=== PATIENT | female | born 1955 | race Caucasian/White ===

== ENCOUNTER → 2019-09-05 | Outpatient (CLI) | payer MEDICARE ==
[2019-09-05 15:06] LABS: HCT 41.7 % (34.0-46.0); HGB 14.7 gm/dL (11.4-16.0); MCH 33.6 pg (25.0-35.0); MCHC 35.3 g/dL (31.0-37.0); MCV 95.4 fL (80.0-100.0); Mean Platelet Volume 5.7; Platelet Count 229 k/uL (150-450); RBC 4.37 m/uL (3.80-5.40); RDW 13.5 % (11.5-15.5); WBC 6.8 k/uL (3.8-10.6)
[2019-09-05 15:13] LABS: Partial Thromboplastin Time 24.4 sec (22.0-30.0); Prothrombin Time 10.8 sec (9.0-12.0)
[2019-09-05 15:18] LABS: ALT 28 U/L (9-52); AST 31 U/L (14-36); African American GFR (CKD) >90 (>60 ml/min/1.73 sqM); Alkaline Phosphatase 108 U/L (38-126); Anion Gap 6 mmol/L; Blood Urea Nitrogen 17 mg/dL (7-17); Calcium 9.5 mg/dL (8.4-10.2); Carbon Dioxide 29 mmol/L (22-30); Chloride 107 mmol/L (98-107); Glucose 101 mg/dL (74-99); Potassium 4.5 mmol/L (3.5-5.1); Sodium 142 mmol/L (137-145); Total Bilirubin 0.5 mg/dL (0.2-1.3); Total Protein 7.3 g/dL (6.3-8.2)
[2019-09-05 15:19] LABS: Appearance,Urine Clear (Clear); Bacteria,Urine Rare /hpf; Bilirubin,Urine Negative (Negative); Blood,Urine Negative (Negative); Color,Urine Yellow; Glucose,Urine (UA) Negative (Negative); Ketones,Urine Negative (Negative); Leukocyte Esterase,Urine Trace (Negative); Mucus,Urine Rare /hpf; Nitrite,Urine Negative (Negative); PH, Urine 6.5 (5.0-8.0); Protein,Urine Negative (Negative); Specific Gravity,Urine 1.015 (1.001-1.035); Squamous Epithelial Cell,Urine <1 /hpf (0-4); Urobilinogen,Urine <2.0 mg/dL (<2.0); WBC,Urine 1 /hpf (0-5)
== END ==
LOC: LABPAT 12:39
PROVIDERS: ATTEND Orthopaedic Surgery
DX: Z01.812 Encounter for preprocedural laboratory examination (principal); M17.11 Unilateral primary osteoarthritis, right knee; Z79.01 Long term (current) use of anticoagulants
CPT/HCPCS: 80053; 81001; 85027; 85610; 85730; 87070

== ENCOUNTER 2019-09-25 08:19 | Day surgery (SDC) | payer MEDICARE ==
[2019-09-21 15:30] VITALS: BMI 31.8
[~2019-09-25 08:19] MED LIST: ACETAMINOPHEN TAB 500 MG TAB PO ONE; DEXAMETHASONE SOD PHOSPHATE 10 MG/ML 1 ML VIAL IV ONE; GABAPENTIN 300 MG CAP PO ONE; HYDROmorphone 0.5 MG/0.5 ML SYRINGE IVP PRN; LIDOCAINE 1% 20 ML VIAL (10MG/ML) FOR IV START INTRADERMA PRN; MELOXICAM 7.5 MG TAB PO ONE; MIDAZOLAM 2 MG/2 ML VIAL IV PRN; ONDANSETRON 4 MG/2 ML VIAL IVP ONE; ROPIVACAINE 246.25 MG, EPINEPHrine 0.5 MG, KETOROLAC 30 MG, cloNIDine HCL/PF 80 MCG, WA... MISCELLANE ONE; SCOPOLAMINE 1.5MG/72HR PATCH TRANSDERM ONE; TRANEXAMIC ACID 1,000 MG in SODIUM CHLORIDE 0.9% 100 ML IVPB ONE
[2019-09-25] MEDS: LACTATED RINGERS 1,000 ML IV SCH (09:31)
[2019-09-25] MEDS ORDERED: MIDAZOLAM 2 MG/2 ML VIAL IVP ONE (09:42)
[2019-09-25] MEDS ORDERED: fentaNYL (PF) 50 MCG/ML 2 ML AMP IVP ONE (09:42)
[2019-09-25] MEDS ORDERED: ROPIVACAINE 0.2%-NS ON-Q PUMP 1,090 MG, EMPTY PAIN BALL 1 EACH MISCELLANE PRN (10:07)
[2019-09-25] MEDS ORDERED: MIDAZOLAM 2 MG/2 ML VIAL ONE (10:22)
[2019-09-25] MEDS ORDERED: ROPIVACAINE 5 MG/ML 30 ML VIAL ONE (10:22)
[2019-09-25] MEDS ORDERED: TRANEXAMIC ACID 1,000 MG/10 ML VIAL ONE (10:22)
[2019-09-25] MEDS ORDERED: SODIUM CHLORIDE 0.9% 100 ML BAG ONE (10:22)
--- NOTE | 2019-09-25 10:48 | P.ANPRN ---
Procedure Note - Anesthesia - Nerve Block Performed Right Adductor Canal Infusion Time Out Performed: Yes ([id number]) Date of Procedure: 09/25/19 Procedure Start Time: 09:41 Procedure Stop Time: 09:47 Location of Patient: PreOp Indication: Acute Post-Operative Pain, Requested by Surgeon Specifically requested for management of pain by DrAurelio: Rodolfo Martinez Sedation Type: Sedate with meaningful contact maintained Preparation: Sterile Prep, Sterile Dressing Position: Supine Catheter Depth at Skin (cm): 5 Catheter: Indwelling Needle Types: Pajunk Needle Gauge: 18 Ultrasound used to visualize needle placement: Yes Ultrasound used to observe medication spread: Yes Injectate: 0.5% Ropivacaine (see comment for volume) Blood Aspirated: No Pain Paresthesia on Injection Noted: No Resistance on Injection: Normal Image Stored and Saved: Yes Events: Uneventful and Well Tolerated
[2019-09-25] MEDS ORDERED: ceFAZolin 3,000 MG in SODIUM CHLORIDE 0.9% IRRIGATIO 3,000 ML IRRIGATION ONE ×4 (10:59)
[2019-09-25] MEDS ORDERED: LACTATED RINGERS 1,000 ML IV ONE (11:26)
--- NOTE | 2019-09-25 12:15 | P.OP ---
Date of Procedure: 09/25/19 Procedure(s) Performed: PREOPERATIVE DIAGNOSIS: Right knee severe osteoarthritis with genu varum POSTOPERATIVE DIAGNOSIS: Right knee severe osteoarthritis with genu varum OPERATION: Right knee cemented total replacement arthroplasty. ANESTHESIA: Spinal ESTIMATED BLOOD LOSS: 100 ml. NETWORK CONTRACTOR: Dieter Devi PA-C (assistance with: patient positioning, retraction, exposure, hemostasis, leg positioning, implantation, irrigation, closure, dressing) COMPLICATIONS: None apparent. COMPONENTS IMPLANTED: Journey II total knee system from [employer], [facility] INDICATIONS: Mrs. Molina with a history of right knee osteoarthritis. The patient's knee is end-stage, and conservative management has failed. The operation of knee replacement has been discussed at length in the office, as well as potential risks and complications. These are inclusive of, but not limited to: bleeding, infection, scarring, discomfort, blood vessel and nerve damage, need for further surgery, failure to relieve symptoms, persistence, recurrence, or worsening of problems, loosening, dislocation, wear, blood clot, pulmonary embolism, , gait dysfunction, stiffness, and other risks as discussed in the office. The patient elects to proceed and the consent form has been signed. PROCEDURE: The patient was taken to the operating room and positioned on the operating room table in the supine position. Anesthesia was initiated. Care was taken to make sure that all pressure points were adequately padded. The operative lower extremity was prepped and draped in the usual aseptic fashion using ChloraPrep. Ioban drape was used for the case and the patient received intravenous antibiotics within one hour of the incision. A pneumotourniquet and leg murrieta were used for the case. The limb was exsanguinated with an Esmarch bandage and the tourniquet was inflated to 350 mmHg. Time-out was called conf irming the patient's identity, side, procedure and administration of antibiotics and tranexamic acid. The incision was then created midline directly over the right knee, carried down through skin and into the subcutaneous tissues and down to fascia. Full thickness subcutaneous medial flap was developed. Medial parapatellar arthrotomy was performed and the interior of the knee was inspected. There was end-stage osteoarthritis of the knee with a mild to moderate genu varum type deformity. The fat pad was excised and proximal medial release on the tibia was completed using meticulous dissection and a curved osteotome. The anterior cruciate ligament was taken down. Note was made of significant attrition of the anterior and significant degenerative appearance of the cruciate ligaments. The exposure was excellent. The knee was flexed 90 degrees and the patella was everted. The [employer] pre- made distal cutting block was attached and pinned into position. The planned cut was analyzed visually and with the alignment ashanti and found to be satisfactory without the need for any adjustment. The oscillating saw was then used to make the distal femoral cut and make the alignment holes for the 5 in 1 block. This cut was confirmed to be flat with the flat end of an osteotome. The 5 in 1 block was then used to create the anterior posterior condylar resections and the chamfer cuts. The retractors were placed around the tibia and the tibial surface was addressed. The [employer] pre-made guide was placed onto the exposed tibial surface and pinned into position to yinka the rotational alignment. The alignment of the guide was checked for depth of plannned resection, slope, and varus valgus. Guide was confirmed to be in good position and the tibial cut was then created with protection of the posterior neurovascular structures and the collateral ligaments. The tibial cut surface was removed and sized. Spacer block technique was then used to confirm that the flexion and extension gaps were equal. Soft tissue releases and adjustment of the tibial and/or femoral cuts were made, as necessary, until the gaps were equal. This included release of the posterior cruciate ligament, which was excessively tight in this patient. Prior to placing trial components, anesthetic solution consisting of ropivicaine with epinephrine, ketorolac, and clonidine was injected carefully and methodically in a grid pattern using aspiration technique into the soft tissue around the knee circumferentially, starting with the deeper tissues first and progressing to fascia, and then finally the skin/subcutaneous tissue. Particular care was taken when injecting the posterior capsule, with avoidance of the midline posterior area. The trial components were inserted. The tibial tray was allowed to self center and the patella was noted to track very well. The position of the tibial component was marked and noted to be nearly exactly aligned with the pre-drilled holes from the [employer] guide. The tibia was then finished for a stemmed tibial component. Patellar resurfacing was performed using a reamer. The size of the required patellar component was estimated and the patellar surface was then reamed down to a residual thickness which would recreate the [place] thickness with the component. The exact placement of the patellar component was adjusted for position based on preoperative x-rays and intraoperative findings. Trial components were removed and the cut surfaces of the bone were pulse lavaged thoroughly and dried. Cement was mixed on the back table and applied to the final components. Cement was then applied to the tibial surface and pressurized into the surface using finger pressurization technique. The tibial component was then applied and excess cement was removed after it was impacted securely and noted to be flush with the cut surface. In similar fashion, the cement was applied to the cut femoral surface, pressurized in using finger pressurization and the component was impacted into place. Excess cement was removed. The polyethylene spacer was then implanted and locked into position. The patellar component was then applied in similar technique and a patellar clamp was used to hold the patella in place as the cement hardened. Once the cement had fully hardened, the knee was reinspected. Any other cement extrusion was removed and final kinematic testing showed range of motion from 0 to 130 degrees with excellent stability, both medially and laterally and appropriate alignment of the leg. Patellar tracking was excellent. The knee was then thoroughly pulse lavaged with normal saline. The tourniquet was deflated and hemostasis was obtained with electrocautery and IV tranexamic acid, 1 g given at the start of the operation and 1 g at the start of closure. Closure was with #2 Ethibond in the fascia/capsule and supplemented with #2 Quill, 2-0 Vicryl suture was used for the subcutaneous tissues and 3-0 Quill for the skin. Dermabond/Steri-Strips were then applied. A lightly compressive dressing was applied using Webril and an Norberto wrap. [facility] and [facility] to the recovery room in stable condition. Sponge and needle counts were correct.
[2019-09-25] MEDS ORDERED: ONDANSETRON 4 MG/2 ML VIAL IVP PRN (13:04)
[2019-09-25] MEDS ORDERED: MAGNESIUM HYDROXIDE 2,400 MG/10 ML CUP PO PRN (13:04)
[2019-09-25] MEDS ORDERED: HYDROcodone/APAP 5-325MG 1 EACH TAB PO PRN (13:04)
[2019-09-25] MEDS ORDERED: NALOXONE 0.4 MG/ML 1 ML VIAL IV PRN (13:04)
--- NOTE | 2019-09-25 13:52 | XR ---
EXAMINATION TYPE: XR knee limited RT DATE OF EXAM: 09/25/2019 CLINICAL HISTORY: Right knee pain and arthritis status post total knee replacement. TECHNIQUE: Portable AP and crosstable lateral views of the right knee are obtained immediately posto peratively. COMPARISON: None FINDINGS: Metallic hardware from total right knee arthroplasty is seen and appears satisfactory in a lignment and position. There is evidence of recent surgery with diffuse subcutaneous gas and soft ti ssue swelling noted. IMPRESSION: METALLIC HARDWARE FROM TOTAL RIGHT KNEE ARTHROPLASTY IS SATISFACTORY IN ALIGNMENT.
[2019-09-25] MEDS: HYDROcodone/APAP 7.5-325MG 1 EACH TAB PO PRN (17:22)
[2019-09-25] MEDS: ASPIRIN 325 MG TAB PO SCH (20:22)
[2019-09-25] MEDS: SENNOSIDES-DOCUSATE SODIUM 1 EACH TAB PO SCH (20:22)
[2019-09-25] MEDS: GABAPENTIN 300 MG CAP PO SCH (21:28)
[2019-09-25] MEDS: HYDROmorphone 1 MG/ML 1 ML SYRINGE IVP PRN (21:28)
[2019-09-25] MEDS: ATORVASTATIN 40 MG TAB PO SCH (21:28)
[2019-09-25] MEDS: traZODone HCL 50 MG TAB PO SCH (21:28)
[2019-09-26] MEDS: LACTATED RINGERS 1,000 ML IV SCH (00:24)
[2019-09-26] MEDS: HYDROcodone/APAP 7.5-325MG 1 EACH TAB PO PRN ×3 (01:38→20:57)
[2019-09-26] MEDS: hydrOXYzine PAMOATE 25 MG CAP PO PRN ×3 (01:38→20:57)
[2019-09-26] MEDS: LEVOTHYROXINE 25 MCG TAB PO SCH (04:59)
[2019-09-26] MEDS: HYDROmorphone 1 MG/ML 1 ML SYRINGE IVP PRN ×3 (05:01→16:57)
[2019-09-26 07:33] LABS: Basophils % (A) 0 %; Eosinophils # (A) 0.1 k/uL (0-0.7); Eosinophils % (A) 1 %; HGB 13.2 gm/dL (11.4-16.0); Lymphocytes # (A) 0.9 k/uL (1.0-4.8); Lymphocytes % (A) 9 %; MCH 32.2 pg (25.0-35.0); MCHC 33.7 g/dL (31.0-37.0); MCV 95.4 fL (80.0-100.0); Mean Platelet Volume 7.4; Monocytes # (A) 0.5 k/uL (0-1.0); Monocytes % (A) 5 %; Neutrophils # (A) 8.4 k/uL (1.3-7.7); Neutrophils % (A) 83 %; Platelet Count 214 k/uL (150-450); RBC 4.09 m/uL (3.80-5.40); RDW 12.8 % (11.5-15.5)
[2019-09-26] MEDS: ASPIRIN 325 MG TAB PO SCH ×2 (08:42→20:57)
[2019-09-26] MEDS: GABAPENTIN 300 MG CAP PO SCH ×4 (08:42→20:57)
--- NOTE | 2019-09-26 09:32 | P.PN ---
Subjective Progress Note Date: 09/26/19 This patient is a 63-year-old female with past medical history of hypertension, hyperlipidemia, hypothyroidism, and Crohn's disease that underwent a right total knee arthroplasty with Dr. Martinez on 09/25/19. Today is post-operative day #1. The patient states she is very nauseated this morning, she recently vomited. She ate a full breakfast without issue. She states she was up multiple times throughout the day yesterday with assistance and a walker, without significant pain or issue in the right knee. She states she is experiencing pain currently in the right knee, which is expected. She denies chest pain, shortness of breath, nausea, vomiting, numbness of tingling of the right lower extremity. Vital signs stable. Objective - Vital Signs Vital signs: Vital Signs Temp 98 F 09/26/19 07:00 Pulse 64 09/26/19 07:00 Resp 12 09/26/19 07:00 BP 127/70 09/26/19 07:00 Pulse Ox 90 L 09/26/19 07:00 Intake & Output 09/25/19 09/26/19 09/26/19 18:59 06:59 18:59 Intake Total 1591 730 Output Total 100 Balance 1491 730 Weight 80.286 kg Intake: IV 1351 Intake, IV Titration 190 Amount Lactated Ringers 1,000 ml 190 @ 20 mls/hr IV .Q24H [facility] Rx#:[id number] Oral 240 540 Output: Estimated Blood Loss 100 - Exam On examination, the patient is sitting up in the wheelchair sitting at the sink. She is alert and orientated x3. On inspection of the right lower lower extremity, there is a clean, dry, intact dressing in place. Dressing is taken down and reveals a benign appearing surgical incision, with no surrounding erythema, warmth, or drainage. Motor and sensory function are intact of the right lower extremity. The right lower extremity is warm and well-perfused with brisk capillary refill. Vital signs stable. - Labs CBC & Chem 7: 09/26/19 06:49 Labs: Abnormal Lab Results - Last 24 Hours (Table) 09/26/19 Range/Units 06:49 Neutrophils # 8.4 H (1.3-7.7) k/uL Lymphocytes # 0.9 L (1.0-4.8) k/uL Assessment and Plan Assessment: Status-post right total knee arthroplasty. Post-operative day #1. Plan: - Weight bearing as tolerated on the right lower extremity. Up with assistance, up with a walker. - Continue physical therapy for gait and balance training. - Continue pain management. Zofran PRN for nausea. - Aspirin 325 mg twice a day for DVT prophylaxis. - Appreciate internal medicine consultation for julio-operative medical managem ent. - Anticipate discharge home within the next 24 hours, pending medical clearance.
--- NOTE | 2019-09-26 10:24 | P.PN ---
Progress Note - Text 09/26 658am 63-year-old female status post total knee replacement by Dr. Martinez. Patient seen this morning to evaluate her pain control, On-Q pump solution running at 8 mL an hour patient has a VAS of 5 and has taken oral pain medication for pain control. Plan to continue On-Q pump infusion
[2019-09-26] MEDS ORDERED: DICYCLOMINE 20 MG TAB PO PRN (13:11)
[2019-09-26] MEDS ORDERED: METHOTREXATE SODIUM 2.5 MG TAB PO SCH (14:00)
--- NOTE | 2019-09-26 16:03 | P.CONS ---
History of Present Illness - Reason for Consult Recommendations regarding antihypertensive medications - History of Present Illness Patient is admitted for elective right total knee arthroplasty successfully underwent surgery patient is still having a lot of pain. Patient is requesting for Dilaudid for pain and she says is only thing that helps. Patient did not move her bowel yet did pass gas. Denied any dysuria fever chills, nausea vomiting doesn't have a Jackson catheter no problems with urination. Review of Systems REVIEW OF SYSTEMS: CONSTITUTIONAL: No fever, no malaise, no fatigue. HEENT: No recent visual problems or hearing problems. Denied any sore throat. CARDIOVASCULAR: No chest pain, orthopnea, PND, no palpitations, no syncope. PULMONARY: No shortness of breath, no cough, no hemoptysis. GASTROINTESTINAL: No diarrhea, no nausea, no vomiting, no abdominal pain. NEUROLOGICAL: No headaches, no weakness, no numbness. HEMATOLOGICAL: Denies any bleeding or petechiae. GENITOURINARY: Denies any burning micturition, frequency, or urgency. MUSCULOSKELETAL/RHEUMATOLOGICAL: As mentioned in HPI ENDOCRINE: Denies any polyuria or polydipsia. The rest of the 14-point review of systems is negative. Past Medical History Past Medical History: GERD/Reflux, Hyperlipidemia, Hypertension, Osteoarthritis (OA) Additional Past Medical History / Comment(s): Hx dry eyes,Crohn's,steroid injection Jul 2019,inflammatory arthritis History of Any Multi-Drug Resistant Organisms: None Reported Past Surgical History: Section, Cholecystectomy, Orthopedic Surgery Additional Past Surgical History / Comment(s): lt knee replaced,tristan knee arthroscopies,tristan carpal tunnel,left wrist cyst removal,2 c sect,3 D&Cs Past Anesthesia/Blood Transfusion Reactions: No Reported Reaction Additional Past Anesthesia/Blood Transfusion Reaction / Comm: no hx blood transfusion Past Psychological History: No Psychological Hx Reported Additional Psychological History / Comment(s): claustrophobia Smoking Status: Never smoker Past Alcohol Use History: None Reported Past Drug Use History: None Reported - Past Family History Mother Family Medical History: No Reported History Sister(s) Family Medical History: CVA/TIA Medications and Allergies Home Medications Medication Instructions Recorded Confirmed Type Aspirin 81 mg PO DAILY 09/21/19 09/21/19 History Atorvastatin Calcium [Lipitor] 40 mg PO HS 09/21/19 09/21/19 History Calcium Carbonate/Vitamin D3 1 each PO DAILY 09/21/19 09/25/19 History [Calcium 600-Vit D3 200 Tablet] Dicyclomine HCl 20 mg PO Q4-6H PRN 09/21/19 09/21/19 History Folic Acid 1 mg PO DAILY 09/21/19 09/21/19 History Gabapentin [Neurontin] 300 mg PO QID 09/21/19 09/21/19 History Levothyroxine Sodium [Synthroid] 25 mcg PO HS 09/21/19 09/25/19 History Meloxicam [Qmiiz Odt] 15 mg PO DAILY 09/21/19 09/21/19 History Methotrexate Sodium [Methotrexate] 15 mg PO Q7D 09/21/19 09/21/19 History Multivit-Min/Iron/Folic/Lutein 1 each PO DAILY 09/21/19 09/21/19 History [Centrum Silver Women Tablet] [place]-3 Fatty Acids [[place]-3] 3 cap PO DAILY 09/21/19 09/21/19 History Omeprazole 20 mg PO QAM 09/21/19 09/21/19 History amLODIPine BESYLATE/BENAZEPRIL 1 tab PO QAM 09/21/19 09/21/19 History [amLODIPine BESYLATE/BENAZEPRIL 5-20 MG] traMADol HCL 200 mg PO QAM 09/21/19 09/21/19 History traZODone HCL [Desyrel] 100 mg PO HS 09/21/19 09/21/19 History Allergies Allergy/AdvReac Type Severity Reaction Status Date / Time Sulfa (Sulfonamide Allergy Rash/Hives Verified 09/21/19 15:16 Antibiotics) Physical Exam Vitals: Vital Signs Temp Pulse Resp BP Pulse Ox 09/26/19 07:00 98 F 64 12 127/70 90 L 09/26/19 00:29 99.1 F 97 14 105/65 94 L 09/25/19 19:11 96 09/25/19 19:03 97.9 F 83 16 109/66 Intake and Output 09/26/19 09/26/19 09/26/19 06:59 14:59 22:59 Intake Total 700 Balance 700 Intake: Intake, IV Titration 160 Amount Lactated Ringers 1,000 ml 160 @ 20 mls/hr IV .Q24H [facility] Rx#:[id number] Oral 540 Other: # Voids 3 PHYSICAL EXAMINATION: GENERAL: The patient is alert and oriented x3, not in any acute distress. Well developed, well nourished. HEENT: Pupils are round and equally reacting to light. EOMI. No scleral icterus. No conjunctival pallor. Normocephalic, atraumatic. No pharyngeal erythema. No thyromegaly. CARDIOVASCULAR: S1 and S2 present. No murmurs, rubs, or gallops. PULMONARY: Chest is clear to auscultation, no wheezing or crackles. ABDOMEN: Soft, nontender, nondistended, normoactive bowel sounds. No palpable organomegaly. MUSCULOSKELETAL: Right knee postsurgically packed EXTREMITIES: No cyanosis, clubbing, or pedal edema. NEUROLOGICAL: Gross neurological examination did not reveal any focal deficits. SKIN: No rashes. Results CBC & Chem 7: 09/26/19 06:49 Labs: Abnormal Lab Results - Last 24 Hours (Table) 09/26/19 Range/Units 06:49 Neutrophils # 8.4 H (1.3-7.7) k/uL Lymphocytes # 0.9 L (1.0-4.8) k/uL Assessment and Plan Plan: -Hypertension: Patient is expected to have hypotension the perioperative better because of which will hold off her antidepressants medications depending on her blood pressure will resume if needed tomorrow -Hyperlipidemia -Gastroesophageal reflux disease -Osteoarthritis status post right knee replacement as mentioned above Medication reconciliation was done and patient was started back on appropriate home medications.
[2019-09-26] MEDS: traZODone HCL 50 MG TAB PO SCH (20:57)
[2019-09-26] MEDS: SENNOSIDES-DOCUSATE SODIUM 1 EACH TAB PO SCH (20:57)
[2019-09-26] MEDS: ATORVASTATIN 40 MG TAB PO SCH (20:57)
[2019-09-27] MEDS: LACTATED RINGERS 1,000 ML IV SCH (04:30)
[2019-09-27] MEDS: LEVOTHYROXINE 25 MCG TAB PO SCH (04:32)
[2019-09-27 07:22] VITALS: BP 133/66; PULSE 93; RESP 15; TEMP 99.4
[2019-09-27] MEDS: ASPIRIN 325 MG TAB PO SCH (07:54)
[2019-09-27] MEDS: HYDROcodone/APAP 7.5-325MG 1 EACH TAB PO PRN (07:54)
[2019-09-27] MEDS: GABAPENTIN 300 MG CAP PO SCH ×2 (07:54→12:45)
--- NOTE | 2019-09-27 08:31 | P.DS ---
Providers Expected date of discharge: 09/27/19 Attending physician: Rodolfo Martinez Consults: 09/25/19 18:02 Consult Physician Routine Consulting Provider: Ayush Lomax Consult Reason/Comments: medical management Do you want consulting provider notified?: Yes Primary care physician: Physician Nonstaff Hospital Course: This is a 59-year-old female who has been followed for right knee osteoarthritis. Conservative measures have failed at controlling her symptoms, therefore surgery was recommended. The patient underwent a right total knee arthroplasty on 09/25/[address] Martinez. She was admitted to [facility] following the procedure with a consult placed to internal medicine for perioperative medical management. The procedure was performed without complication or sequelae. The patient is doing fairly well postoperatively. Vital signs and labs are stable on postoperative day #2. Patient was examined bedside today. Patient states she is no longer nauseated or vomiting. She is tolerating her diet well. Patient's pain in the right knee is currently under control. She has not had a bowel movement post-operatively, although she denies abdominal pain. She overall is feeling well today. She denies any new complaints. She denies chest pain, shortness of breath, nausea, vomiting, numbness or tingling. Vital signs stable. On examination, the patient is sitting up in the wheelchair in no apparent distress. She is alert and orientated x3. On inspection of the right knee, there is a clean, dry, intact dressing in place. Dressing is taken down and reveals a benign appearing surgical incision, with no surrounding erythema, warmth, or drainage. Motor and sensory function are intact of the right lower extremity. The right lower extremity is warm and well perfused with brisk capillary refill. Vital signs stable. Patient is discharged home with health services in good condition, pending medical clearance. Patient will follow-up with Dr. Martinez in the office in 2 weeks. Please see med rec for accurate list of discharge medication. Plan - Discharge Summary Discharge Rx Participant: Yes New Discharge Prescriptions: New HYDROcodone/APAP 7.5-325MG [[place] 7.5-325] 1 tab PO Q6HR PRN 3 Days #30 tab PRN Reason: Pain Aspirin 325 mg PO BID #56 tab No Action Calcium Carbonate/Vitamin D3 [Calcium 600-Vit D3 200 Tablet] 1 each PO DAILY Multivit-Min/Iron/Folic/Lutein [Centrum Silver Women Tablet] 1 each PO DAILY Gabapentin [Neurontin] 300 mg PO QID Aspirin 81 mg PO DAILY traZODone HCL [Desyrel] 100 mg PO HS traMADol HCL 200 mg PO QAM Meloxicam [Qmiiz Odt] 15 mg PO DAILY amLODIPine BESYLATE/BENAZEPRIL [amLODIPine BESYLATE/BENAZEPRIL 5-20 MG] 1 tab PO QAM Levothyroxine Sodium [Synthroid] 25 mcg PO HS Atorvastatin Calcium [Lipitor] 40 mg PO HS Dicyclomine HCl 20 mg PO Q4-6H PRN PRN Reason: Crohn's Omeprazole 20 mg PO QAM Methotrexate Sodium [Methotrexate] 15 mg PO Q7D Folic Acid 1 mg PO DAILY [place]-3 Fatty Acids [[place]-3] 3 cap PO DAILY Discharge Medication List Aspirin 81 mg PO DAILY 09/21/19 [History] Atorvastatin Calcium [Lipitor] 40 mg PO HS 09/21/19 [History] Calcium Carbonate/Vitamin D3 [Calcium 600-Vit D3 200 Tablet] 1 each PO DAILY 09/21/19 [History] Dicyclomine HCl 20 mg PO Q4-6H PRN 09/21/19 [History] Folic Acid 1 mg PO DAILY 09/21/19 [History] Gabapentin [Neurontin] 300 mg PO QID 09/21/19 [History] Levothyroxine Sodium [Synthroid] 25 mcg PO HS 09/21/19 [History] Meloxicam [Qmiiz Odt] 15 mg PO DAILY 09/21/19 [History] Methotrexate Sodium [Methotrexate] 15 mg PO Q7D 09/21/19 [History] Multivit-Min/Iron/Folic/Lutein [Centrum Silver Women Tablet] 1 each PO DAILY [History] [place]-3 Fatty Acids [[place]-3] 3 cap PO DAILY 09/21/19 [History] Omeprazole 20 mg PO QAM 09/21/19 [History] amLODIPine BESYLATE/BENAZEPRIL [amLODIPine BESYLATE/BENAZEPRIL 5-20 MG] 1 tab PO QAM 09/21/19 [History] traMADol HCL 200 mg PO QAM 09/21/19 [History] traZODone HCL [Desyrel] 100 mg PO HS 09/21/19 [History] Aspirin 325 mg PO BID #56 tab 09/27/19 [Rx] HYDROcodone/APAP 7.5-325MG [[place] 7.5-325] 1 tab PO Q6HR PRN 3 Days #30 tab 09/27/19 [Rx] Follow up Appointment(s)/Referral(s): Rodolfo Martinez MD [STAFF PHYSICIAN] - 10/06/19 9:55 am (Patient may follow-up with Dr. Martinez at [facility] in 2-3 weeks following discharge. ) Activity/Diet/Wound Care/Special Instructions: [facility] care: [phone] 1. Keep dressing over the right knee clean, dry, intact 2. Daily dressing changes over the right knee as needed 3. Weight-bear as tolerated on the left lower extremity 4. Patient may shower without dressing intact incision site remains dry over the next 72 hours 5. Take medications as prescribed. I instructed the patient that she is not to take her prescribed tramadol while taking [place]. 6. Do not soak in tub Discharge Disposition: HOME SELF-CARE
[2019-09-27] MEDS ORDERED: CALCIUM CARB-VIT D 500MG-200UN 1 EACH TAB PO SCH (09:00)
[2019-09-27] MEDS ORDERED: ASPIRIN 81 MG PO SCH (09:00)
[2019-09-27] MEDS ORDERED: TRAMADOL HCL 200 MG PO SCH (09:00)
[2019-09-27] MEDS ORDERED: FOLIC ACID 1 MG TAB PO SCH (09:00)
--- NOTE | 2019-09-27 10:52 | XR ---
EXAMINATION TYPE: XR chest 1V DATE OF EXAM: 09/27/2019 COMPARISON: NONE HISTORY: Shortness of breath TECHNIQUE: Single frontal view of the chest is obtained. FINDINGS: Hypoventilatory lungs. There is no focal air space opacity, pleural effusion, or pneumothor ax seen. The cardiac silhouette size is within normal limits. The osseous structures are intact. IMPRESSION: Hypoventilatory lungs. No acute cardiopulmonary pathology.
--- NOTE | 2019-09-27 12:15 | P.PN ---
Progress Note - Text Anesthesia POD 2. Patient is status post right TKR under spinal anesthesia with a right adductor canal catheter placed for postoperative pain relief. With ropivacaine 0.2% running at 10 cc's per hour, the patient's VAS is (4, 6). Catheter site is clean dry and intact.
--- NOTE | 2019-09-27 12:33 | P.PN ---
Subjective No entry events patient pain is well-controlled patient is passing gas. Patient looks very good but her saturations were low because of which obtained a chest x-ray no significant acute abnormality was found patient is okay to be discharged repeat the pulse oximetry checking on her earlobe was within normal limits patient has a nail greenlandic which is probably interfering with the pulse ox readings. Constitutional: Denied any fatigue denied any fever. Cardio vascular: denied any chest pain, palpitations Gastrointestinal denied any nausea vomiting Pulmonary: Denied any shortness of breath cough Neurologic denied any new focal deficits All inpatient medications were reviewed and appropriate changes in these medications as dictated in the interval history and assessment and plan. Objective - Vital Signs Vital signs: Vital Signs Temp 99.4 F 09/27/19 07:00 Pulse 93 09/27/19 07:00 Resp 15 09/27/19 07:00 BP 133/66 09/27/19 07:00 Pulse Ox 89 L 09/27/19 07:00 Intake & Output 09/26/19 09/27/19 09/27/19 18:59 06:59 18:59 Intake Total 460 Balance 460 Intake: Oral 460 Other: # Voids 3 1 - Exam PHYSICAL EXAMINATION: GENERAL: The patient is alert and oriented x3, not in any acute distress. Well developed, well nourished. HEENT: Pupils are round and equally reacting to light. EOMI. No scleral icterus. No conjunctival pallor. Normocephalic, atraumatic. No pharyngeal erythema. No thyromegaly. CARDIOVASCULAR: S1 and S2 present. No murmurs, rubs, or gallops. PULMONARY: Chest is clear to auscultation, no wheezing or crackles. ABDOMEN: Soft, nontender, nondistended, normoactive bowel sounds. No palpable organomegaly. MUSCULOSKELETAL: No joint swelling or deformity. EXTREMITIES: No cyanosis, clubbing, or pedal edema. NEUROLOGICAL: Gross neurological examination did not reveal any focal deficits. SKIN: No rashes. - Labs CBC & Chem 7: 09/26/19 06:49 Assessment and Plan Plan: -Hypertension: Patient is expected to have hypotension the perioperative better, patient can resume her anti-medications medications blood pressures better today -Hyperlipidemia -Gastroesophageal reflux disease -Osteoarthritis status post right knee replacement as mentioned above Patient can be discharged from medical perspective
== END 2019-09-27 13:02 | disposition home or self-care (01) ==
LOC: OR 08:19 → 4SSUR 15:09 → OR 09-27 13:02
PROVIDERS: ATTEND Orthopaedic Surgery
DX: M17.11 Unilateral primary osteoarthritis, right knee (principal); M21.161 Varus deformity, not elsewhere classified, right knee; K50.90 Crohn's disease, unspecified, without complications; I10 Essential (primary) hypertension; E78.5 Hyperlipidemia, unspecified; E03.9 Hypothyroidism, unspecified; M06.9 Rheumatoid arthritis, unspecified; K21.9 Gastro-esophageal reflux disease without esophagitis; F40.240 Claustrophobia; Z79.899 Other long term (current) drug therapy; Z79.890 Hormone replacement therapy; Z79.891 Long term (current) use of opiate analgesic; Z97.3 Presence of spectacles and contact lenses; Z88.2 Allergy status to sulfonamides; Z98.890 Other specified postprocedural states; Z90.710 Acquired absence of both cervix and uterus; Z96.652 Presence of left artificial knee joint; Z90.49 Acquired absence of other specified parts of digestive tract; Z98.1 Arthrodesis status; Z87.828 Personal history of other (healed) physical injury and trauma; Z79.82 Long term (current) use of aspirin; Z86.69 Personal history of other diseases of the nervous system and sense organs; Z83.3 Family history of diabetes mellitus; Z82.49 Family history of ischemic heart disease and other diseases of the circulatory system; Z82.3 Family history of stroke
CPT/HCPCS: 27447; 97116; 97162; 64448; 76942; 85025; 88300; 73560; 71045; C1713; C1776; J2250; J0171; J0690 ×3; J2405 ×2; J8610; J3010; J1885; J1170 ×2; J2795 ×2; J0735